=== PATIENT | female | born 1955 | race African-American/Black ===

== ENCOUNTER 2019-04-30 09:16 | Emergency (ER) | payer BC, SELFPAY ==
--- NOTE | ~2019-04-30 | XR_ITS ---
XR chest 2V DATE: 04/30/2019 10:09 INDICATION: Cough for one week. Afebrile. History of asthma. TECHNIQUE: PA and lateral views COMPARISON: 02/04/2017 two-view chest FINDINGS: Cardiomegaly. Mild aortic tortuosity. No hilar or mediastinal enlargement. No pulmonary infiltrate or consolidation, pleural effusion or pulmonary vascular congestion or pneumo thorax. Diffuse osteopenia. IMPRESSION: Cardiomegaly No active pulmonary disease or significant change since 02/04/2017 Reviewed, dictated and finalized at location A.
--- NOTE | 2019-04-30 09:30 | ED.URI ---
HPI - URI/Sore Throat General Chief Complaint: Upper Respiratory Infection Stated Complaint: SOB/CHEST PAIN/ASTHMA Time Seen by Provider: 04/30/19 09:31 Source: patient and RN notes reviewed History of Present Illness HPI Narrative: Patient is a 63-year-old female that presents the urgent care with complaints of intermittent shortness of breath, nonproductive cough and some wheezing. Patient states that she does use daily inhalers due to her history of asthma and denies any increased use of inhalers. States her symptoms started a week ago and denies any fever. Patient denies chest pain. States that she also has a history of pneumonia. Patient states that she wants to have a chest x-ray completed due to her history and is very adamant. No other acute complaints. No acute distress noted. Patient read the plan of care. Related Data Home Medications Medication Instructions Recorded Confirmed amlodipine-benazepril cap 04/30/19 aspirin 04/30/19 bupropion HCl mg PO 04/30/19 fluticasone propion-salmeterol INHALATION 04/30/19 [Wixela Inhub] metoprolol succinate PO 04/30/19 rosuvastatin mg 04/30/19 Allergies Allergy/AdvReac Type Severity Reaction Status Date / Time No Known Allergies Allergy Verified 04/30/19 09:40 Review of Systems Review of Systems: Narrative: CONSTITUTIONAL: Denies fever, chills, or sweats. EYES: Denies visual changes, redness, or discharge. ENT: Denies rhinorrhea, congestion, sore throat, or otalgia. CARDIOVASCULAR: Denies chest pain, palpitations, or edema. RESPIRATORY: Reports of nonproductive cough with intermittent dyspnea and wheezing GASTROINTESTINAL: Denies abdominal pain, nausea, vomiting, or diarrhea. GENITOURINARY: Denies dysuria or hematuria. SKIN: Denies rash or itching. MUSCULOSKELETAL: Denies back pain, joint pain, or myalgia. NEUROLOGIC: Denies headache, numbness, or weakness. All other systems reviewed are negative, except as documented in HPI. PMFSH Comments At the time of my signature, I reviewed and agree with the nursing past medical, surgical, social, and family history. There is no relevant family history pertinent to the patient complaint. Exam Narrative: Exam Narrative: GENERAL: This is a well-nourished, well-developed patient, in no apparent distress. HEAD: normocephalic, atraumatic. EYES: PERRL. Sclera clear/white. Vision is grossly intact. EARS: External ears normal, auditory canals clear and without drainage, TMs normal without perforation. Hearing grossly intact. NOSE: External nose normal with no obvious nasal discharge, nares without redness, no rhinorrhea. THROAT: Mucous membranes moist, posterior pharynx clear. NECK: Neck supple, non-tender without lymphadenopathy CARDIOVASCULAR: Regular rate and rhythm without murmurs, gallops, or rubs. RESPIRATORY: Clear to auscultation. Slight diminished right upper lobe without any crackles or wheezing SKIN: warm, intact with no suspicious lesions or rash, good texture and turgor. NEURO: awake, alert, and oriented to person, place and time. There were no obvious focal neurologic abnormalities. EXTREMITIES: No clubbing, cyanosis, or edema. Course Vital Signs Vital signs: Vital Signs Temperature 97.1 F L 04/30/19 09:43 Pulse Rate 59 L 04/30/19 09:43 Respiratory Rate 20 04/30/19 09:43 Blood Pressure 136/65 04/30/19 09:43 Pulse Oximetry 100 04/30/19 09:43 Temperature 97.1 F L 04/30/19 09:43 Pulse Rate 59 L 04/30/19 09:46 Respiratory Rate 20 04/30/19 09:46 Blood Pressure 136/65 04/30/19 09:43 Pulse Oximetry 100 04/30/19 09:46 Reviewed MDM - URI/Sore Throat MDM Narrative Medical decision making narrative: Reviewed chest x-ray results with the patient. She is aware that x-ray was negative for pneumonia or any acute abnormality. Advised the patient to continue use inhalers as needed. May use qtdo-sau-gnpidde Robitussin or Delsym as needed for cough. If you develop any increase in sympt
[2019-04-30 09:43] VITALS: BP 136/65; PULSE 59; RESP 20; TEMP 36.2; O2SAT 100
[2019-04-30 09:46] VITALS: PULSE 59; RESP 20; O2SAT 100
== END 2019-04-30 10:38 | disposition home or self-care (01) ==
PROVIDERS: Emergency Provider Nurse Practitioner Family
DX: R05 Cough (principal); E78.00 Pure hypercholesterolemia, unspecified; I10 Essential (primary) hypertension; J45.909 Unspecified asthma, uncomplicated
CPT/HCPCS: 71046; 99213; G0463

== ENCOUNTER 2022-09-19 12:54 | Emergency (ER) | payer BC, SELFPAY ==
[2022-09-19 13:03] VITALS: BP 132/76; PULSE 75; RESP 16; TEMP 36.1; O2SAT 100
[2022-09-19 13:11] VITALS: BP 132/76; PULSE 75; RESP 16; TEMP 36.1; O2SAT 100
--- NOTE | 2022-09-19 13:13 | ED.SKABFB ---
HPI - Skin/Abscess/Foreign Bdy General Chief complaint: Skin/Abscess/Foreign Body Stated complaint: infection in finger Time Seen by Provider: 09/19/22 13:07 Source: patient Mode of arrival: ambulatory Limitations: no limitations History of Present Illness HPI narrative: 67-year-old female presented for complaint of left ring finger infection worsening over the past 3 weeks. She states this started after she got her nails done at a salon. Reports the tenderness is worse around the edge of the nailbed (distally). States the sites has been more red and swollen than it is today. Denies drainage from the site. Applying neosporin to the site. She does not have acrylic nails, she has dip/gel in place over her nail. Related Data Home Medications Medication Instructions Recorded Confirmed amlodipine 10 mg-benazepril 40 mg 1 cap PO DAILY 04/30/19 09/19/22 capsule aspirin 81 mg tablet,delayed 81 mg PO DAILY 04/30/19 09/19/22 release bupropion HCl 300 mg 24 hr tablet, 300 mg PO DAILY 04/30/19 09/19/22 extended release albuterol sulfate 90 mcg/actuation 2 inh inhalation DIRECTED 09/19/22 09/19/22 aerosol inhaler fluticasone 100 mcg-salmeterol 50 2 inh inhalation DIRECTED 09/19/22 09/19/22 mcg/dose blistr powdr for inhalation (Cristaela Inhub) metoprolol succinate 50 mg 50 mg PO DAILY 09/19/22 09/19/22 tablet,extended release 24 hr rosuvastatin 40 mg tablet 40 mg PO DAILY 09/19/22 09/19/22 tranexamic acid 650 mg tablet 650 mg PO DIRECTED 09/19/22 09/19/22 Allergies Allergy/AdvReac Type Severity Reaction Status Date / Time No Known Allergies Allergy Verified 09/19/22 13:03 Review of Systems Review of Systems: CONSTITUTIONAL: Denies body aches, fever, chills, or sweats. EYES: Denies visual changes, redness, or discharge. ENT: Denies rhinorrhea, congestion CARDIOVASCULAR: Denies chest pain, palpitations, or edema. RESPIRATORY: Denies cough or dyspnea. GASTROINTESTINAL: Denies abdominal pain, nausea, vomiting, or diarrhea. SKIN: reports infected finger MUSCULOSKELETAL: Denies back pain, joint pain, or myalgia. NEUROLOGIC: Denies headache, numbness, tingling, or weakness. FORMERLY [facility], 1928–1983 Past Medical History Medical History (Updated 09/19/22 @ 13:21 by Sapna Grullon APRN) Hypertension Comments At time of signature, I have reviewed and agree with nursing past medical, surgical, social and family history unless otherwise noted. Please see nursing chart for further information. There is no relevant family history pertinent to the presenting complaint Exam Narrative: GENERAL: Well-appearing HEAD: Normocephalic, atraumatic. EYES: conjunctivae clear, and EOMI. ENT: Mucous membranes moist. Oropharynx without edema, erythema or lesions. NECK: Supple. No lymphadenopathy CHEST: Clear to auscultation. HEART: Regular rate and rhythm. SKIN: Warm, dry. Left 4th digit with mild swelling, erythema, and tenderness under the distal end of the nailbed. Appears the nail is raised slightly with scant serous fluid. No paronychia. NEURO: Alert and oriented x3. Course Course Emergency Course: Patient is aware of diagnosis, understands and agrees to treatment plan. Anticipatory guidance given. Patient agrees to follow-up as directed and is aware of reasons to seek care at the emergency department. Portions of this record may have been created with voice recognition software Level of Care: Express Care Visit Vital Signs Vital signs: Vital Signs Temperature 97.0 F L 09/19/22 13:03 Pulse Rate 75 09/19/22 13:03 Respiratory Rate 16 09/19/22 13:03 Blood Pressure 132/76 09/19/22 13:03 Pulse Oximetry 100 09/19/22 13:03 Temperature 97.0 F L 09/19/22 13:11 Pulse Rate 75 09/19/22 13:11 Respiratory Rate 16 09/19/22 13:11 Blood Pressure 132/76 09/19/22 13:11 Pulse Oximetry 100 09/19/22 13:11 Reviewed MDM - Skin/Abscess/Foreign Bdy MDM Narrative Medical decisi
== END 2022-09-19 13:19 | disposition home or self-care (01) ==
PROVIDERS: Emergency Provider Nurse Practitioner Family
DX: L08.9 Local infection of the skin and subcutaneous tissue, unspecified (principal); I10 Essential (primary) hypertension; Z79.82 Long term (current) use of aspirin
CPT/HCPCS: 99213; G0463